=== PATIENT | female | born 1985 | race Caucasian/White ===

== ENCOUNTER 2022-05-16 23:44 | Emergency (ER) | payer MEDICAID ==
[~2022-05-16] VITALS: Ht 160 cm; Wt 80.3 kg
[2022-05-16 23:48] VITALS: BP 116/78
--- NOTE | 2022-05-16 23:54 | NUR ---
PT TAKEN TO BED 6
--- NOTE | 2022-05-16 23:59 | NUR ---
X-Ray at bedside.
--- NOTE | 2022-05-17 00:14 | NUR ---
36/F BIB SELF C/C INJURY TO LEFT 5TH TOE. PER PATIENT SHE WAS GETTING OUT OF SHOWER AND SLIPPED DUE TO WET FLOOR X15MIN PRIOR TO ARRIVAL. PAIN IS "SHARP/PULSATING" 8/10 WHEN WALKING. PATIENT TOE APPEAR TO BE SWOLLEN AND FACING SLIGHLY OUTWARD AND OUT OF PLACE. PATIENT IS ABLE TO MOVE FOOT AND FEEL SENSATION AROUND THE AREA, BUT PAIN WHEN MOVED. RR APPEAR TO BE EVEN AND UNLABORED. DOESNT APPEAR TO BE IN DISTRESS. PATIENT PLACED IN BED AND GOWN. BED LOW AND LOCKED. ALL NEEDS MET. DENIES PMHX, RX NKA
--- NOTE | 2022-05-17 00:17 | NUR ---
Dr. Chaney examining patient.
[2022-05-17] MEDS ORDERED: LIDOCAINE 2% 100 MG/5 ML UJET TP ONE (00:20)
[2022-05-17] MEDS: LIDOCAINE MPF 2% 100 MG/5 ML VIAL INJ ONE (00:39)
[2022-05-17] MEDS ORDERED: HYDROcodone/APAP 5/325 MG 1 TAB TAB ONE (01:23)
--- NOTE | 2022-05-17 01:25 | NUR ---
VERBAL ORDER FROM MD VERA FOR HYDROCODONE/ACETAMINOPHEN 5/325MG AND CARRIED OUT
--- NOTE | 2022-05-17 01:30 | NUR ---
ERMD AT BEDSIDE
--- NOTE | 2022-05-17 01:37 | NUR ---
X-Ray at bedside.
--- NOTE | 2022-05-17 01:38 | NUR ---
PER ERMD PTS 4TH AND 5TH DIGIT OF THE LEFT FOOT WERE CADY TAPED TOGETHER, PT TOLERATED THE PROCEDURE WELL, +CMS BEFORE AND AFTER PROCEDURE, ORTHO SHOE PROVIDED
[2022-05-17] MEDS ORDERED: NAPR-54 PO (02:57)
[2022-05-17 03:48] VITALS: BP 132/80
--- NOTE | 2022-05-17 03:48 | NUR ---
Patient discharged with v/s stable. Written and verbal after care instructions given TOE FX and explained. Patient alert, oriented and verbalized understanding of instructions. Ambulatory with steady gait. All questions addressed prior to discharge. ID band removed. Patient advised to follow up with PMD. Rx of NAPROXEN given.
== END 2022-05-17 03:48 | disposition home or self-care (01) ==
LOC: MED 23:44
DX: S92.512A Displaced fracture of proximal phalanx of left lesser toe(s), initial encounter for closed fracture (principal); Z79.1 Long term (current) use of non-steroidal anti-inflammatories (NSAID); W18.40XA Slipping, tripping and stumbling without falling, unspecified, initial encounter; Y93.89 Activity, other specified; Y92.89 Other specified places as the place of occurrence of the external cause; Y99.8 Other external cause status
CPT/HCPCS: 28515; 73660; 99284; J2001; Q0092